=== PATIENT | female | born 1985 | race Caucasian/White ===

== ENCOUNTER 2019-01-26 14:52 | Emergency (ER) | payer BC ==
[2019-01-26] MEDS ORDERED: IPRATROPIUM-ALBUTEROL 3 ML NEB INHALATION STA (15:04)
[2019-01-26] MEDS ORDERED: ACETAMINOPHEN TAB 325 MG TAB PO STA (15:05)
--- NOTE | 2019-01-26 15:08 | ED ---
General Adult HPI - General Chief complaint: Upper Respiratory Infection Stated complaint: fever/chest congestion Time Seen by Provider: 01/26/19 14:56 Source: patient, RN notes reviewed, old records reviewed Mode of arrival: ambulatory Limitations: no limitations - History of Present Illness Initial comments: 33-year-old female patient with no pertinent past medical history presents to ED with 3 days of fever cough, congestion, right otalgia. Patient reports that she presented to urgent care yesterday and started on azithromycin. Patient states that she does have some mild shortness of breath after coughing and while laying supine. Patient denies any chest pain abdominal pain vomiting or diarrhea. Patient was that she has had some mild nausea. Patient states that she cannot be . Patient has taken 2 doses of azithromycin. Patient denies any other complaints. Patient denies any recent prolonged travel, denies active cancer, denies any use of exogenous hormone products, denies any leg pain, unilateral leg swelling. Systemic: Pt denies fatigue, myalgia, fever/chills, rash. Pt denies weakness, night sweats, weight loss. Neuro: Pt denies headache, visual disturbances, syncope or pre-syncope. HEENT: Pt denies ocular discharge or irritation, otalgia, rhinorrhea, pharyngitis or notable lymphadenopathy. Cardiopulmonary: Pt denies chest pain, heart palpitations, dyspnea on exertion. Abdominal/GI: Pt denies abdominal pain, n/v/d. : Pt denies dysuria, burning w/ urination, frequency/urgency. Denies new onset urinary or bowel incontinence. MSK: Pt denies myalgia, loss of strength or function in extremities. Neuro: Pt denies new onset weakness, paresthesias. - Related Data Home Medications Medication Instructions Recorded Confirmed Azithromycin [Zithromax Z-pack] See Taper PO DAILY 01/26/19 01/26/19 Previous Rx's Medication Instructions Recorded Albuterol Inhaler [Ventolin Hfa 1 - 2 puff INHALATION Q4-6H PRN #1 01/26/19 Inhaler] inhaler predniSONE 50 mg PO DAILY #4 tab 01/26/19 Allergies Allergy/AdvReac Type Severity Reaction Status Date / Time No Known Allergies Allergy Verified 01/26/19 15:09 Review of Systems ROS Statement: Those systems with pertinent positive or pertinent negative responses have been documented in the HPI. ROS Other: All systems not noted in ROS Statement are negative. Past Medical History Past Medical History: No Reported History History of Any Multi-Drug Resistant Organisms: None Reported Past Surgical History: Section Additional Past Surgical History / Comment(s): x 2 Past Anesthesia/Blood Transfusion Reactions: No Reported Reaction Past Psychological History: No Psychological Hx Reported Smoking Status: Never smoker Past Alcohol Use History: Occasional Past Drug Use History: None Reported - Past Family History Father Family Medical History: Hypertension General Exam - General Exam Comments Initial Comments: Constitutional: NAD, AOX3, Pt has pleasant affect. HEENT: NC/AT, trachea midline, neck supple, no lymphadenopathy. Posterior pharynx non erythematous, without exudates. External ears appear normal, without discharge. Mucous membranes moist. Eyes PERRLA, EOM intact. There is no scleral icterus. No pallor noted. Cardiopulmonary: RRR, no murmurs, rubs or gallops, no JVD noted. Wheezing noted in anterior and posterior diaz. Lungs CTAB after breathing treatment. No peripheral edema. Abdominal exam: Abdomen soft and non-distended. Abdomen non-tender to palpation in all 4 quadrants. Bowel sounds active in LLQ. No hepatosplenomegaly. No ecchymosis Neuro: CN II-XII grossly intact. No nuchal rigidity. MSK: No posterior calf tenderness bilaterally, homans sign negative bilaterally. Posterior tibialis and radial pulse +2 bilaterally. Sensation intact in upper and lower extremities. Full active ROM in upper and lower extremities, 5/5 stregnth. Limitations: no limitations Course Vital Signs 01/26/19 01/26/19 01/26/19 14:53 15:32 16:21 Temperature 99.2 F Pulse Rate 101 H 100 Respiratory 18 18 20 Rate Blood Pressure 120/79 O2 Sat by Pulse 99 Oximetry 01/26/19 01/26/19 01/26/19 16:35 17:07 17:11 Temperature 98.1 F Pulse Rate 114 H 104 H 96 Respiratory 16 16 Rate Blood Pressure 129/89 O2 Sat by Pulse 94 L Oximetry Medical Decision Making - Medical Decision Making 33-year-old female patient with no pertinent past medical history presents to ED with 3 days of fever cough, congestion, right otalgia. Patient reports that she presented to urgent care yesterday and started on azithromycin. Patient states that she does have some mild shortness of breath after coughing and while laying supine. Patient denies any chest pain abdominal pain vomiting or diarrhea. Patient was that she has had some mild nausea. Patient states that she cannot be . Patient has taken 2 doses of azithromycin. Patient denies any other complaints. Physical exam displayed: Wheezing noted in anterior and posterior diaz. Lungs CTAB after breathing treatment. Laboratory inve stigations revealed negative influenza. Chest x-ray revealed a suspicious patchy left basilar acute infiltrate. Patient administered 1 g Rocephin, 250 mg azithromycin, breathing treatment, Tylenol, prednisone. Patient reevaluated, denies any chest pain or shortness of breath. Patient was offered possible admission, patient declined states that she would prefer to go home. Patient was discharged with albuterol, prednisone. Patient to continue azithromycin as directed. Patient to have close outpatient follow-up. Patient return to ER immediately if condition worsens in any way. Return precautions discussed, patient was understanding. Case discussed in depth with Dr. Partida. - Lab Data Lab Results 01/26/19 Range/Units 15:15 Influenza Type A RNA Not Detected (Not Detectd) Influenza Type B (PCR) Not Detected (Not Detectd) Disposition Clinical Impression: Community acquired pneumonia Disposition: HOME SELF-CARE Condition: Stable Instructions (If sedation given, give patient instructions): Pneumonia (ED) Additional Instructions: Patient to adhere to previously discussed treatment plan and will take medication(s) as directed. Patient to follow up with PCP in 1-2 days. Patient to return to ED if symptoms do not improve. Continue to take azithromycin as directed. Take steroids as directed. Use inhaler as needed for wheezing. Return immediately to ER if condition worsens in any way. Prescriptions: predniSONE 50 mg PO DAILY #4 tab Albuterol Inhaler [Ventolin Hfa Inhaler] 1 - 2 puff INHALATION Q4-6H PRN #1 inhaler PRN Reason: Cough Is patient prescribed a controlled substance at d/c from ED?: No Referrals: None,Stated [Primary Care Provider] [facility]
--- NOTE | 2019-01-26 15:39 | XR ---
EXAMINATION TYPE: XR chest 2V DATE OF EXAM: 01/26/2019 COMPARISON: NONE HISTORY: Fever cough and congestion TECHNIQUE: Frontal and lateral views of the chest are obtained. FINDINGS: There is suspicious opacity confirmed on 2 views with air bronchograms left lung base. Ri ght lung is clear. No pleural effusion or pneumothorax is evident bilaterally. The cardiac silhouette size is within normal limits. The osseous structures are intact. IMPRESSION: Suspicious patchy left basilar acute infiltrate.
[2019-01-26] MEDS ORDERED: AZITHROMYCIN 250 MG TAB PO STA (15:52)
[2019-01-26] MEDS ORDERED: cefTRIAXone 1,000 MG VIAL (IM USE) IM STA (15:52)
[2019-01-26 16:35] VITALS: RESP 16
[2019-01-26] MEDS ORDERED: predniSONE 50 MG TAB PO STA (16:48)
[2019-01-26 17:08] VITALS: BP 129/89; TEMP 98.1
[2019-01-26 17:12] VITALS: PULSE 96
== END 2019-01-26 17:37 | disposition home or self-care (01) ==
LOC: EC 14:52
DX: J18.9 Pneumonia, unspecified organism (principal)
CPT/HCPCS: 94640; 87502; 71046; 99284; 96372; J0696; J7512